=== PATIENT | female | born 1970 | race Caucasian/White ===

== ENCOUNTER 2018-01-06 10:07 | Day surgery (SDC) | payer OTHER, BC ==
[~2018-01-06 10:07] MED LIST: Lactated Ringers 1,000 ML IV SCH; Sodium Chloride 0.9% 10 ML Syringe FLUSH PRN; Sodium Chloride 0.9% 2.5 ML Syringe FLUSH PRN
--- NOTE | 2018-01-06 11:48 | PCM.PREANE ---
Preanesthetic Assessment - Anesthesia/Transfusion/Family Hx Anesthesia History: Prior Anesthesia Without Reaction Family History of Anesthesia Reaction: No Transfusion History: No Prior Transfusion(s) Intubation History: Unknown - Review of Systems General: No Symptoms Pulmonary: No Symptoms Cardiovascular: No Symptoms Gastrointestinal: No Symptoms Neurological: No Symptoms Other: Reports: None - Physical Assessment O2 Sat by Pulse Oximetry: 98 Respiratory Rate: 53 Vital Signs: Last Vital Signs Temp 36.4 C 01/06/18 10:30 Pulse 53 L 01/06/18 10:30 Resp 53 H 01/06/18 10:30 BP 134/61 01/06/18 10:30 Pulse Ox 98 01/06/18 10:30 Height: 1.69 m Weight: 89.358 kg ASA Class: 2 Mental Status: Alert & Oriented x3 Airway Class: Mallampati = 2 Dentition: Reports: Normal Dentition (lower retainer) Thyro-Mental Finger Breadths: 3 Mouth Opening Finger Breadths: 3 ROM/Head Extension: Full Lungs: Clear to Auscultation, Normal Respiratory Effort Cardiovascular: Regular Rate, Regular Rhythm - Lab Values: Laboratory Last Values WBC 4.88 K/uL (4.0-11.0) 01/06/18 11:03 RBC 4.19 M/uL (4.30-5.90) L 01/06/18 11:03 Hgb 12.7 g/dL (12.0-16.0) 01/06/18 11:03 Hct 37.7 % (36.0-46.0) 01/06/18 11:03 MCV 90.0 fL (80.0-98.0) 01/06/18 11:03 MCH 30.3 pg (27.0-32.0) 01/06/18 11:03 MCHC 33.7 g/dL (31.0-37.0) 01/06/18 11:03 RDW Std Deviation 41.2 fl (28.0-62.0) 01/06/18 11:03 RDW Coeff of Blaise 13 % (11.0-15.0) 01/06/18 11:03 Plt Count 187 K/uL (150-400) 01/06/18 11:03 MPV 11.00 fL (7.40-12.00) 01/06/18 11:03 Neut % (Auto) 55.3 % (48.0-80.0) 01/06/18 11:03 Lymph % (Auto) 36.7 % (16.0-40.0) 01/06/18 11:03 Gregory % (Auto) 7.2 % (0.0-15.0) 01/06/18 11:03 Eos % (Auto) 0.6 % (0.0-7.0) 01/06/18 11:03 Baso % (Auto) 0.2 % (0.0-1.5) 01/06/18 11:03 Neut # (Auto) 2.7 K/uL (1.4-5.7) 01/06/18 11:03 Lymph # (Auto) 1.8 K/uL (0.6-2.4) 01/06/18 11:03 Gregory # (Auto) 0.4 K/uL (0.0-0.8) 01/06/18 11:03 Eos # (Auto) 0.0 K/uL (0.0-0.7) 01/06/18 11:03 Baso # (Auto) 0.0 K/uL (0.0-0.1) 01/06/18 11:03 Nucleated RBC % 0.0 /100WBC 01/06/18 11:03 Nucleated RBCs # 0 K/uL 01/06/18 11:03 HCG, Qual NEGATIVE (NEG) 01/06/18 11:03 - Allergies Allergies/Adverse Reactions: Allergies Allergy/AdvReac Type Severity Reaction Status Date / Time amoxicillin Allergy Hives Verified 01/01/18 11:03 codeine Allergy Other Verified 01/01/18 11:03 Penicillins Allergy Hives Verified 01/01/18 11:03 - Blood Blood Available: No - Anesthesia Plan Pre-Op Medication Ordered: None - Acknowledgements Anesthesia Type Planned: MAC Pt an Appropriate Candidate for the Planned Anesthesia: Yes Alternatives and Risks of Anesthesia Discussed w Pt/Guardian: Yes Pt/Guardian Understands and Agrees with Anesthesia Plan: Yes PreAnesthesia Questionnaire HEENT History: Reports: Other (See Below) Other HEENT History: has permanent lower dental retainer [employer] History: Reports: Musculoskeletal History: Reports: Fracture Other Musculoskeletal History: hx of fx wrist Endocrine/Metabolic History: Reports: Obesity/BMI 30+ Dermatologic History: Reports: Other (See Below) Other Dermatologic History: hx of cold sores - Past Surgical History Female Surgical History: Reports: Tubal Ligation - SUBSTANCE USE Smoking Status *Q: Former Smoker Recreational Drug Use History: No - HOME MEDS Home Medications: Home Meds Multivitamin [Multi-Day Vitamins] 1 tab PO DAILY 01/01/18 [History] valACYclovir HCl [Valtrex] 1,000 mg PO ASDIRECTED PRN 01/01/18 [History] - CURRENT (IN HOUSE) MEDS Current Meds: Current Medications Lactated Ringer's (Ringers, Lactated) 1,000 mls @ 100 mls/hr IV ASDIRECTED FREDI Last Admin: 01/06/18 11:34 Dose: 100 mls/hr Sodium Chloride (Saline Flush) 10 ml FLUSH ASDIRECTED PRN PRN Reason: Keep Vein Open Sodium Chloride (Saline Flush) 2.5 ml FLUSH ASDIRECTED PRN PRN Reason: Keep Vein Open
[2018-01-06] MEDS ORDERED: Propofol 200 MG/20 ML SDV ONE ×2 (13:08→13:53)
[2018-01-06] MEDS ORDERED: Midazolam 1 MG/ML 2 ML SDV ONE (13:19)
[2018-01-06] MEDS ORDERED: fentaNYL 250 MCG/5 ML SDV ONE (13:53)
--- NOTE | 2018-01-06 14:04 | PCM.OPNOTE ---
- General Post-Op/Procedure Note Date of Surgery/Procedure: 01/06/18 Operative Procedure(s): LEEP of cervix Findings: BRENNEN II Pre Op Diagnosis: BRENNEN II Post-Op Diagnosis: same Anesthesia Technique: Local, MAC Primary Surgeon: Teena Levine Pathology: cervix anterior/posterior lip and endocervical hat Fluid Replacement, Intraop: 1,000 EBL in mLs: 30 Complications: None Condition: Good Free Text/Narrative:: Dictation [id number]
--- NOTE | 2018-01-06 14:06 | PCM.POSTAN ---
POST ANESTHESIA ASSESSMENT - MENTAL STATUS Mental Status: Alert, Oriented - RESPIRATORY Respiratory Status: Respiratory Rate WNL, Airway Patent, O2 Saturation Stable - CARDIOVASCULAR CV Status: Pulse Rate WNL, Blood Pressure Stable - GASTROINTESTINAL GI Status: No Symptoms - POST OP HYDRATION Hydration Status: Adequate & Stable
[2018-01-06] MEDS ORDERED: fentaNYL 100 MCG/2 ML SDV IVPUSH PRN (14:07)
--- NOTE | 2018-01-06 14:30 | PCM48HPAN ---
Post Anesthesia Note - EVALUATION WITHIN 48HRS OF ANESTHETIC Vital Signs in Normal Range: Yes Patient Participated in Evaluation: Yes Respiratory Function Stable: Yes Airway Patent: Yes Cardiovascular Function Stable: Yes Hydration Status Stable: Yes Pain Control Satisfactory: Yes Nausea and Vomiting Control Satisfactory: Yes Mental Status Recovered: Yes Resp Rate: 18 - COMMENTS/OBSERVATIONS Free Text/Narrative:: Awake and denies any complaints at this time.
--- NOTE | 2018-01-06 16:22 | OR ---
SURGEON: Teena Levine M.D. DATE OF PROCEDURE: 01/06/2018 PREOPERATIVE DIAGNOSIS: Cervical intraepithelial neoplasia 2. POSTOPERATIVE DIAGNOSIS: Cervical intraepithelial neoplasia 2. PROCEDURE: LEEP of cervix. ANESTHESIA: MAC with local. ESTIMATED BLOOD LOSS: 30 mL. FLUIDS: 1000 mL of crystalloid. COMPLICATIONS: None. FINDINGS: BRENNEN 2. DISPOSITION: The patient to PACU, stable. PROCEDURE IN DETAIL: Lyla is a 47-year-old female, who has biopsy-proven BRENNEN 2. At this time, we discussed further evaluation and treatment in form of LEEP. The patient has consented to this after risks have been discussed. The patient was taken to operating room where she underwent MAC. She was placed in modified dorsal lithotomy position. A time-out was performed. A speculum was introduced in the vagina. The cervix was grasped with a single-tooth tenaculum and brought into view. Lugol solution was now gently placed and the cervix was prepped with 1% lidocaine with epinephrine in a circumferential fashion. The sidewall retractor was gently placed. Using 20 x 8 mm loop, the anterior lip of cervix was excised followed by the posterior lip. There was a remnant of anterior lip on the left side that was further resected. Using a 10 mm loop, the endocervical hat was now excised followed by an endocervical curetting. The base of the wound bed was cauterized with rollerball and Monsel was gently placed. Hemostasis appeared evident. The patient tolerated the procedure well. All instruments were removed from the vagina. Sponge count and instrument count were correct. The patient will go to PACU in stable condition. Specimen to pathology. SHERRY / MAHIN /[id number] LENNY
== END 2018-01-06 15:01 | disposition home or self-care (01) ==
LOC: MERGE 10:07 → MW.SDS 10:07
PROVIDERS: ATTEND Obstetrics & Gynecology
DX: N87.1 Moderate cervical dysplasia (principal); E66.9 Obesity, unspecified; Z68.31 Body mass index [BMI] 31.0-31.9, adult; Z87.891 Personal history of nicotine dependence; Z88.0 Allergy status to penicillin; Z88.5 Allergy status to narcotic agent; Z88.1 Allergy status to other antibiotic agents
CPT/HCPCS: 36415; 57522; 84703; 85025; J2250; J3010; J7120; J2704

== ENCOUNTER 2023-12-22 06:19 | Day surgery (SDC) | payer OTHER ==
[2023-12-21 13:06] LABS: HEMATOCRIT 38.5 % (37.0-47.0); HEMOGLOBIN 13.1 g/dL (12.0-16.0); MEAN CORPUSCULAR HEMOGLOBIN 30.8 pg (28.0-32.0); MEAN CORPUSCULAR VOLUME 90.4 fL (83.0-99.0); MEAN PLATELET VOLUME 9.8 fL (9.4-12.3); PLATELET COUNT,PLT 228 K/uL (150-400); RED BLOOD CELL COUNT 4.26 M/uL (4.10-5.30); WHITE BLOOD CELL COUNT,WBC 6.83 K/uL (3.9-11.3)
[~2023-12-22 06:19] MED LIST changes: +Clindamycin Phosphate in D5W 300 MG in Premix Bag 1 BAG IV ONE; -Lactated Ringers 1,000 ML IV SCH; +Sodium Chloride 0.9% 20 ML SDV IV PRN
[2023-12-22] MEDS: Scopalamine 1mg/3day Transdermal Patch TOP ONE (06:49)
[2023-12-22] MEDS: Clindamycin Phosphate in D5W 900 MG in Premix Bag 1 BAG IV ONE (07:03)
[2023-12-22] MEDS: Lactated Ringers 1,000 ML IV SCH (07:13)
[2023-12-22] MEDS ORDERED: HYDROmorphone 1 MG/ML Syringe IVPUSH PRN (07:14)
[2023-12-22] MEDS ORDERED: fentaNYL 50 MCG/ML SDV IVPUSH PRN (07:14)
[2023-12-22] MEDS ORDERED: Ondansetron 4 MG/2 ML SDV IVPUSH PRN (07:14)
[2023-12-22] MEDS ORDERED: Metoclopramide 10 MG/2 ML SDV IVPUSH PRN (07:14)
[2023-12-22] MEDS ORDERED: Morphine 2 MG/ML SYRINGE IVPUSH PRN (07:14)
[2023-12-22] MEDS ORDERED: Naloxone 0.4 MG/ML SDV IVPUSH PRN (07:14)
[2023-12-22] MEDS ORDERED: droPERidol 5 MG/2 ML SDV IVPUSH PRN (07:14)
[2023-12-22] MEDS ORDERED: Albuterol 0.083% 2.5 MG/3 ML Neb Soln NEB PRN (07:14)
[2023-12-22] MEDS ORDERED: Bupivacaine 0.5%/EPINEPHrine 1:200,000 30 ML SDV ONE (07:18)
[2023-12-22] MEDS ORDERED: Neomycin/Polymyxin B Bladder Irrigation 1 ML Amp ONE (07:18)
[2023-12-22] MEDS ORDERED: Bupivacaine 0.25% 10 ML SDV ONE (07:18)
[2023-12-22] MEDS ORDERED: propofoL 50 ML ONE (07:30)
[2023-12-22] MEDS ORDERED: fentaNYL 100 MCG/2 ML SDV ONE (07:34)
[2023-12-22] MEDS ORDERED: Water For Injection, Sterile 20 ML ONE (07:35)
[2023-12-22] MEDS ORDERED: dexmedeTOMIDine HCl 200 MCG/2 ML SDV ONE (07:35)
[2023-12-22] MEDS ORDERED: Lidocaine 1% 20 ML MDV ONE (07:35)
[2023-12-22] MEDS ORDERED: Ondansetron 4 MG/2 ML SDV ONE (07:59)
[2023-12-22] MEDS ORDERED: Dexamethasone 4 MG/ML 5 ML MDV ONE (08:11)
[2023-12-22] MEDS ORDERED: Ketorolac 30 MG/ML SDV ONE (08:22)
[2023-12-22] MEDS ORDERED: Clindamycin Phosphate in D5W 900 MG in Premix Bag 1 BAG IV SCH (11:00)
== END 2023-12-22 10:35 | disposition home or self-care (01) ==
LOC: MW.SDS 06:19
PROVIDERS: ATTEND Obstetrics & Gynecology
DX: R32 Unspecified urinary incontinence (principal); N36.41 Hypermobility of urethra; E66.9 Obesity, unspecified; Z79.899 Other long term (current) drug therapy; Z88.0 Allergy status to penicillin; Z88.1 Allergy status to other antibiotic agents; Z88.5 Allergy status to narcotic agent; Z68.31 Body mass index [BMI] 31.0-31.9, adult
CPT/HCPCS: 36415; 57288; 85027; A9270; J0131; J0736; J1100; J1885; J2405; J2704; J3010; J3490; J7120; 00860